=== PATIENT | male | born 1945 | race Caucasian/White ===

== ENCOUNTER → 2020-09-07 08:26 | Outpatient (CLI) | payer MEDICARE, SELFPAY ==
--- NOTE | 2020-09-07 08:35 | XR_ITS ---
PROCEDURE: XR HAND RT MIN 3V CLINICAL INDICATION: right hand pain COMPARISON: CR XR HAND LT MIN 3V from 09/07/2020 FINDINGS: No fracture or dislocation. No lytic or blastic change. There is normal mineralization. Osteoarthritic changes are present at the 1st metacarpophalangeal joint, 1st interphalangeal joint, 2nd and 3rd metacarpophalangeal joints and the DIP of the 2nd and 3rd and 5th digits. Prominent chondrocalcinosis is present at the 1st 2nd and 3rd metacarpophalangeal joints and at the wrist. No fracture or dislocation. Other findings:None. IMPRESSION: Osteoarthritis with prominent chondrocalcinosis. Calcium pyrophosphate deposition disease is considered. Dictated by: Xander Muniz MD 09/07/2020 17:23 Xander Muniz MD in [place] 09/07/2020 17:23
--- NOTE | 2020-09-07 08:35 | XR_ITS ---
PROCEDURE: XR HAND LT MIN 3V CLINICAL INDICATION: left hand pain COMPARISON: No exams were available for comparison FINDINGS: Osteoarthritic changes of the 1st 2nd and 3rd metacarpophalangeal junction and the 1st interphalangeal joint as well as the 2nd DIP joint. Prominent chondrocalcinosis at the wrist and at the 1st 2nd and 3rd metacarpophalangeal junction The joint spaces are well-preserved. No significant degenerative/arthritic changes. No erosive changes evident. Other findings:None. IMPRESSION: Osteoarthritic changes with chondrocalcinosis, consider calcium pyrophosphate deposition disease. Dictated by: Xander Muniz MD 09/07/2020 17:24 Xander Muniz MD in [place] 09/07/2020 17:24
== END ==
PROVIDERS: PCP Family Medicine; Visit Provider Orthopaedic Surgery
DX: M79.642 Pain in left hand (principal); M79.641 Pain in right hand
CPT/HCPCS: 73130

== ENCOUNTER 2020-09-07 09:58 | Outpatient (RCR) | payer MEDICARE, SELFPAY | END 2020-09-07 10:54 | disposition home or self-care (01) | LOC: OT 09:58 | PROVIDERS: Visit Provider Orthopaedic Surgery | DX: G56.03 Carpal tunnel syndrome, bilateral upper limbs (principal) | CPT/HCPCS: 97763 ==

== ENCOUNTER → 2020-09-21 10:08 | Outpatient (CLI) | payer MEDICARE, MEDICAID, SELFPAY ==
--- NOTE | 2020-09-21 10:12 | XR_ITS ---
PROCEDURE: XR SHOULDER RT MIN 2V CLINICAL INDICATION: right shoulder pain COMPARISON: No exams were available for comparison FINDINGS: Severe osteoarthritic changes are present involving the glenohumeral joint. Prominent soft tissue calcification is present superior to the humeral head consistent with calcific tendinitis. There is also osteoarthritic change at the acromioclavicular joint with prominent periarticular calcification. IMPRESSION: Severe osteoarthritis with calcific tendinitis Dictated by: Xander Muniz MD 09/21/2020 17:06 Xander Muniz MD in [place] 09/21/2020 17:06
--- NOTE | 2020-09-21 10:12 | XR_ITS ---
PROCEDURE: XR SHOULDER LT MIN 2V CLINICAL INDICATION: left shoulder pain COMPARISON: No exams were available for comparison FINDINGS: No fracture or dislocation. No lytic or blastic change. There is normal mineralization. There are severe osteoarthritic changes of the glenohumeral joint. Prominent bony hypertrophy is present at the acromioclavicular joint with periarticular calcification. Calcification is present along the greater tuberosity region consistent with calcific tendinitis Other findings:None. IMPRESSION: Severe osteoarthritis with calcific tendinitis Dictated by: Xander Muniz MD 09/21/2020 17:03 Xander Muniz MD in [place] 09/21/2020 17:03
== END ==
PROVIDERS: PCP Family Medicine; Visit Provider Orthopaedic Surgery
DX: M25.511 Pain in right shoulder (principal); M25.512 Pain in left shoulder
CPT/HCPCS: 73030

== ENCOUNTER → 2020-10-04 12:39 | Outpatient (CLI) | payer MEDICARE, MEDICAID, SELFPAY ==
--- NOTE | 2020-10-04 12:39 | MR_ITS ---
PROCEDURE: MR SHOULDER LT WO CON CLINICAL INDICATION: evaluate for rotator cuff tear Pt. c/o left shoulder pain with no recent injury or trauma. evaluate for rotator cuff tear. COMPARISON: CR XR SHOULDER LT MIN 2V from 09/21/2020 TECHNIQUE: Routine multiplanar multi echo sequences are performed without gadolinium enhancement. FINDINGS: There are prominent hypertrophic changes at the acromioclavicular joint with hyperintensity at the joint space. Most of the bony hypertrophy however is directed superiorly. There is diffuse thickening of the supraspinatus tendon consistent with tendinopathy/tendinosis. There is some minimal fluid signal in the distal aspect of the supraspinatus tendon which could be due to a small partial intrasubstance tear. The infraspinatus tendon is intact as is the subscapularis and teres minor tendons. The bicipital tendon is in place There is severe osteoarthritic changes of the left shoulder with mild elevation of the humeral head. Fluid collection is present in the sub coracoid region consistent with bursitis. Some of this fluid is septated.. Small amount fluid is also present along the posterior aspect of the shoulder joint. Small amount of septated fluid is also present superior to the coracoid. Small subcortical cyst noted along the humeral head. The glenoid labrum are not identified with certainty and could be due to chronic labral tear is and or maceration from the severe osteoarthritis. There is a small amount fluid within the bicipital tendon sheath suggesting tenosynovitis IMPRESSION: 1. Tendinopathy/tendinosis of the supraspinatus tendon with suspected small distal intrasubstance tear. No evidence of complete or full-thickness tear. 2. Severe osteoarthritis of the left glenohumeral joint with shoulder joint effusion as well as supra and subcoracoid bursitis 3. Tenosynovitis of the bicipital tendon 4. Glenoid labrum are not identified with certainty and may be related to chronic tears and or labral maceration from the severe osteoarthritis 5. Severe bony hypertrophy of the acromioclavicular joint causing some subacromial stenosis in minimal impingement upon the supraspinatus tendon. Dictated by: Xander Muniz MD 10/06/2020 12:22 Xander Muniz MD in [place] 10/06/2020 12:22
== END ==
PROVIDERS: PCP Family Medicine; Visit Provider Orthopaedic Surgery
DX: M25.512 Pain in left shoulder (principal); Z01.818 Encounter for other preprocedural examination; Z20.822 Contact with and (suspected) exposure to COVID-19
CPT/HCPCS: 36415; 73221; 80053; 85025; 86328

== ENCOUNTER → 2020-10-04 13:40 | Outpatient (CLI) | payer MEDICARE, SELFPAY ==
[2020-10-04 14:30] LABS: Basophils # 0.1 K/mm3 (0-0.2); Basophils % 0.7 % (0.1-2.0); Eosinophils # 0.1 K/mm3 (0.0-0.4); Eosinophils % 1.1 % (0.1-12.0); Hematocrit 43.3 % (42.0-52.0); Hemoglobin 14.3 g/dL (14.1-18.0); Lymphocytes # 2.5 K/mm3 (0.7-4.5); Mean Corpuscular HGB Conc 32.9 g/dL (31.8-35.4); Mean Corpuscular Hemoglobin 32.6 pg (27.0-31.2); Mean Corpuscular Volume 98.8 fl (80-94); Mean Platelet Volume 7.2 fl (7.4-10.4); Monocytes # 0.3 K/mm3 (0.1-1.0); Monocytes % 4.6 % (1.7-9.3); Neutrophils # 3.3 K/mm3 (1.8-7.8); Neutrophils % 53.5 % (37.0-80.0); Platelet Count 276 K/mm3 (142-424); Red Blood Count 4.38 M/mm3 (4.60-6.20); White Blood Count 6.2 K/mm3 (4.8-10.8)
[2020-10-04 14:50] LABS: Chloride 108 mmol/L (98-107); Potassium 4.3 mmoL/L (3.5-5.1); Sodium 142 mmol/L (136-145)
[2020-10-04 14:53] LABS: Alanine Aminotransferase 19 U/L (12-78); Albumin/Globulin Ratio 1.9 (1.1-1.8); Alkaline Phosphatase 56 U/L (38-126); Anion Gap 11.3 mEq/L (5-15); Aspartate Amino Transferase 31 U/L (17-59); Bilirubin,Total 0.7 mg/dl (0.2-1.3); Blood Urea Nitrogen 12 mg/dl (9-20); Calcium 10.2 mg/dl (8.4-10.2); Carbon Dioxide 27 mmol/L (22.0-30.0); Estimated Glomerular Filt Rate 82 ml/min (>60); GFR (African American) 100 ML/MIN (>60); Globulin 2.6 g/dL (1.3-3.2); Glucose 104 mg/dl (74-100); Total Protein,Serum 7.6 g/dl (6.3-8.2)
[2020-10-04 15:12] LABS: Coronavirus 19 IgG Antibody Negative (Negative); Coronavirus 19 IgM Antibody Negative (Negative)
== END ==
PROVIDERS: Visit Provider Orthopaedic Surgery
DX: Z01.818 Encounter for other preprocedural examination (principal)
CPT/HCPCS: 36415; 80053; 85025; 86328

== ENCOUNTER 2020-10-06 10:04 | Day surgery (SDC) | payer MEDICARE, MEDICAID, SELFPAY ==
[2020-10-04 11:46] VITALS: BMI 27.1
[2020-10-06] VITALS (9 sets, daily range): BP systolic 109–162; BP diastolic 59–93; PULSE 75–97; RESP 10–18; TEMP 36.4–42.7; O2SAT 91–98
--- NOTE | 2020-10-06 12:16 | HMH.ANESCL ---
[facility] Anesthesia Checklist - Patient Identification Patient Identification: Arm Band - Structural Data Admitted From: Home Planned Operative Procedure/s: L. carpal tunnel release Consent for Planned Operative Procedure(s) Verified: Yes - NPO Status Verified Time NPO: 00:00 - Additional verifications Anesthesia Reactions: No Hx Blood Transfusions: No Blood Transfusion Reaction: No - Airway Assessment C-Spine Mobility Assessed: Yes TMJ Mobility Assessed: Yes Dentition: Poor Dentition - Neurological Assessment Level of Consciousness: Awake Hx Seizures: No Numbness or tingling in extremities: No - Anesthesia Plan Anesthesia Risk discussed: Yes Anesthesia Plan: Verified ASA Class: II Anesthesia Type: General [facility] History I have reviewed the patient's past medical history: Yes Medical History: Denies:: Cancer, Diabetes Mellitus Type 1, Diabetes Mellitus Type 2, MRSA, Seizures *Have you ever received a pneumonia vaccine?: Yes *Have you received a flu vaccine this season?: Yes Other Medical History: Reports: Arthritis. Denies: Blood Transfusion Reaction Anesthesia experience/problems:: None Other Surgeries: Yes: Hernia Repair Amputation: No Fractures: No - *Social History Last grade of school completed: High school graduate Smoking Status: Former smoker Alcohol Intake: never Substance Use Type: denies use *Occupational Status:: retired *Travel in the last 8 weeks: None Family Hx:: No significant family history
--- NOTE | 2020-10-06 13:06 | P.PN_ITS ---
[facility] Anesthesia Record Part I Intake, IV Amount: 900 Estimated blood loss (mL): 0 Urine output (mL): 0 Blood Pressure: 131/70 SaO2: 95 Pulse Rate: 88 Respiratory Rate: 10 Temperature: 97.5 F Patient is:: Drowsy, Oral/Nasal airway Stable to PACU at:: 13:03
--- NOTE | 2020-10-06 13:57 | HMH.OPNOTE ---
Date of procedure: 10/06/20 Pre-op Diagnosis:: Carpal tunnel syndrome, left Post-op Diagnosis:: Same Procedure performed:: Open carpal tunnel release, left wrist Surgeon:: Colten Bronson MD Marketing Research Coordinator(s):: Raine Begum PUBLIC HEALTH SPECIALIST:: Other (Micky Dent) Anesthesia: LMA Estimated blood loss (mL): 2 Clinical Note:: Patient is a 75-year-old male with bilateral carpal tunnel syndrome with long-standing symptoms. EMG/NCV studies confirmed carpal tunnel syndrome on both sides. Patient is having significant and disabling symptoms and has failed to respond adequately to conservative management.]. Therefore, carpal tunnel release surgery is necessary to relieve symptoms, preserve the remaining fibers of the median nerve, improve function and decrease the pain, paresthesias and weakness and to prevent permanent nerve damage. He opted to proceed with left carpal tunnel release first as it is more symptomatic than the right side. Please refer to my office note for full details. Operative findings:: The intraoperative findings showed the median nerve to be very tightly compressed and hyperemic. The flexor retinaculum is noted to be thick and tight. There is mild synovitis in the carpal tunnel. There is no evidence of any space-occupying lesions within the carpal tunnel. Operative note:: On the day of the surgery the patient was met in the preoperative area. Patient was positively identified and the operative site was marked and initialed by me. A physical examination was performed and the chart was updated. I again discussed the procedure, risks and benefits and alternatives with the patient. The complications discussed include but are not limited to- bleeding, injury to nerves, blood vessels and tendons, infection, wound dehiscence, incomplete relief/continued pain, persistent numbness, palmar hypersensitivity, pillar pain, DVT/PE, complex regional pain syndrome(CRPS), worsening of nerve damage, failure of the condition to improve, incomplete return of function, bowstringing of tendons, weakness of police reserves commander strength, recurrence, failure of the surgery to accomplish the desired goals, decreased use of the hand, loss of use of the arm, loss of the hand or arm, loss of life. Likely need for further surgery in the future has been discussed. I've indicated to the patient where the proposed incision would be made and also discussed the possibility of extending the incision if needed to accomplish an effective release. We have discussed how the goal of surgery is to protect the fibers which have remained healthy and hopefully reverse the symptoms of the fibers which are compromised but still recoverable. We have explained that, fibers that are permanently damaged will not recover. Patient asked appropriate questions and all have been answered by me. Patient wished to proceed with the surgery. Patient understood the risks, agreed to proceed with surgery, and no guarantees or assurances were given or implied. The patient was brought to the operating room and placed supine on the operating table. The left upper extremity was placed over a side table. All the bony prominences were well-padded. A general anesthesia was administered by the laundry tub maker. A well-padded tourniquet cuff was placed over the upper arm. The left upper extremity was prepped and draped in the usual sterile fashion. A preprocedure timeout was performed as per hospital policy. Administration of prophylactic antibiotics was confirmed with the laundry tub maker. The skin incision was marked using the Chatterjee's landmarks, just ulnar to the thenar crease. The limb was exsanguinated with the Esmarch bandage and tourniquet was inflated to 250 mmHg. Please see nursing records for the total tourniquet time. Chatterjee's landmarks were utilized and a skin incision was made parallel and just ulnar to the thenar crease with a 15 blade. Blunt tissue dissection was carried through the subcutaneous tissue down to the palmar fascia. The palm
--- NOTE | 2020-10-07 07:17 | HMH.ANESII ---
[facility] Anesthesia Record Part II Discharge Time: 13:23 Destination: Surgical Day Care (OP Surgery) PACU nurse assessment reviewed?: Yes Patient Condition:: Good Anesthesia Complications:: None Swallowing reflex intact?: Yes Cyanosis?: No Blood Pressure: 109/74 Pulse Rate: 80 Temperature: 97.5 F Mental Status: Alert & Oriented Pain level:: 0 Nausea and/or vomitting:: None Intake, IV Amount: 800
[2020-10-07 07:18] VITALS: BP 109/74; PULSE 80; TEMP 36.4
== END 2020-10-06 14:16 | disposition home or self-care (01) ==
LOC: OR 10:07
PROVIDERS: PCP Family Medicine; Visit Provider Orthopaedic Surgery
PROC: (CPT 64721; principal; 2020-10-06 11:45)
DX: G56.02 Carpal tunnel syndrome, left upper limb (principal)
CPT/HCPCS: 64721; 96374; J0670

== ENCOUNTER 2022-02-18 11:23 | Emergency (ER) | payer MEDICARE, SELFPAY ==
[2022-02-18 11:24] VITALS: BP 167/112; PULSE 120; RESP 16; TEMP 36.6; O2SAT 98; BMI 36.8
[2022-02-18 11:50] VITALS: BP 167/112; PULSE 120; RESP 16; TEMP 36.7; O2SAT 98; BMI 36.8
--- NOTE | 2022-02-18 12:07 | HMH.EDUTC ---
[facility] Disposition Clinical Impression: Foreign body in ear Qualifiers: Encounter type: initial encounter Laterality: right Qualified Code(s): T16.1XXA - Foreign body in right ear, initial encounter Disposition: Home, Self-Care Condition on Discharge: Good Instructions: DI for Removal of Foreign Body From Ear Additional Instructions: Do not stick anything back into your ear, it can break off and get stuck Follow up with your Family Doctor if you start to have pain in your ear Return if needed Straight to ER if any life threatening symptoms Referrals: Provider,Referral, MD [Primary Care Provider] - As needed Time of Disposition: 19:37 Medical Decision Making - Bg Inquiry Pt receiving controlled substance: No Bg was queried for this patient: No Vital Signs: 02/18/22 11:24 02/18/22 11:50 02/18/22 12:08 Temperature 98 F 98.0 F 98.0 F Temperature Source Oral Oral Pulse Rate 120 H Pulse Rate [Radial] 120 H 120 H Respiratory Rate 16 16 16 Blood Pressure 167/112 H Blood Pressure [Right Radial Artery] 167/112 H 167/112 H Blood Pressure Mean [Right Radial Artery] 130 130 Blood Pressure Source [Right Radial Artery] Automatic Cuff Blood Pressure Position [Right Radial Artery] Sitting Sitting 02 Sat by Pulse Oximetry 98 98 Oxygen Delivery Method Room Air Room Air [facility] HPI - General Stated complaint: F/O in right ear Time Seen by Provider: 02/18/22 12:07 Mode of Arrival: Ambulatory Source of Information: Patient Limitations: No Limitations Description of Symptoms (Recalled from Triage Doc. by RN): PATIENT C/O PIECE OF PAPER TOWEL IN RIGHT EAR SINCE YESTERDAY HEENT Symptoms (Recalled from RN notes): Yes Resp Symptoms (Recalled from RN notes): No Skin Symptoms (Recalled from RN notes): No MS Symptoms (Recalled from RN notes): No Functional Status (Recalled from RN notes): WNL - History of Present Illness Provider Complaint: Patient states that he stuck a piece of paper towel in his ear to clean it out and it broke off in his ear and he has been unable to get it out - Related Data Home Medications Medication Instructions Recorded Confirmed meloxicam 15 mg tablet 15 mg PO DAILY 09/07/20 10/12/20 methocarbamoL [Methocarbamol] 750 mg PO NEEDED PRN 10/04/20 10/12/20 Previous Rx's Medication Instructions Recorded hydrocodone 5 mg-acetaminophen 325 1 tab PO Q6H PRN #20 tab 10/06/20 mg tablet Allergies Allergy/AdvReac Type Severity Reaction Status Date / Time No Known Allergies Allergy Verified 10/12/20 09:14 - Worker's Comp Is this a Worker's Comp case?: No [facility] History - Hepatitis A Screen Attestation statement:: This patient has been screened for Hepatitis A risk factors. I have reviewed the patient's past medical history: Yes Medical History: Denies:: Cancer, Diabetes Mellitus Type 1, Diabetes Mellitus Type 2, MRSA, Seizures Other Medical History: Reports: Arthritis. Denies: Blood Transfusion Reaction Laterality Cases: Left: Carpal Tunnel Release Other Surgeries: Yes: Hernia Repair Amputation: No Fractures: No - Social History Smoking Status: Never smoker Alcohol Intake: never Substance Use Type: denies use Occupational Status: retired Family Hx:: No significant family history ROS Obtained: Yes All systems reviewed & no additional complaints, Yes Systems reviewed as appropriate & no additional complaints - Constitutional Constitutional: Reports system reviewed and no additional complaints, except as docu - ENT Ears, Nose, Mouth, and Throat: Reports system reviewed and no additional complaints, except as docu, Reports other (paper towel right ear) Physical Exam - General General appearance: alert, in no apparent distress - Expanded ENT Exam TM/Canal exam: Right TM: foreign body (small pieces of matter noted in right ear easily removed with curette) - Respiratory Respiratory exam: Present: normal lung sounds bilaterally. Absent: respiratory
[2022-02-18 12:08] VITALS: BP 167/112; PULSE 120; RESP 16; TEMP 36.7; O2SAT 98
== END 2022-02-18 12:15 | disposition home or self-care (01) ==
PROVIDERS: Emergency Provider Nurse Practitioner
DX: T16.1XXA Foreign body in right ear, initial encounter (principal)
CPT/HCPCS: 69200; 99212; G0463